=== PATIENT | female | born 1975 | race American Indian/Alaskan Native ===

== ENCOUNTER 2018-04-02 09:38 | Emergency (ER) | payer MEDICAID ==
[2018-04-02 09:39] VITALS: BMI 20.5
[2018-04-02 09:40] VITALS: TEMP 98.5
--- NOTE | 2018-04-02 11:59 | RAD ---
PROCEDURE: Left Hip X-ray Radiographs. HISTORY: h/o THR one week ago, pain COMPARISON: None. FINDINGS: BONES: No fracture seen. Subchondral lucency with sclerosis borders the superior and to lesser extent inferior acetabular prosthetic component. The contour changes of the inferior left pubic rim are of unknown chronicity. Direct comparison with immediate postop study is advised. JOINTS: The left acetabular and left femoral stem components appear well seated. A single left acetabular iliac screw is present. SOFT TISSUES: Normal. OTHER FINDINGS: None. IMPRESSION: Left hip replacement the 3 views presented are frontal views without significant frog leg obliquing. to assess for any anterior posterior malalignment. Direct comparison with prior immediate postop study is advised. Multiple ossifications bordering the inferior left acetabular prosthetic component overlying the inferior left pubic ring is of unknown chronicity. Acute subacute fractures are not excluded. Comparison with the most recent free and postop images is essential. . This was directly discussed with the ER physician Dr. Beal on 04/02/2018 at 11:57 a.m.
--- NOTE | 2018-04-02 14:16 | ED PDOC ---
Lower Extremity Pain/Injury Time Seen by Provider: 04/02/18 09:52 Chief Complaint (Nursing): Hip Pain History Per: Patient (this is a 42 yo lady who is brought to the ER by EMS because she felt her prosthetic hip come out while she was at her boyfriend's house in [place]. She is from [facility] herself. 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 She had undergone her initial THR when she was 23 years of age. She had just undergone a revision of the joint one week ago by Dr. Dubois of [facility] in the [place]. She was discharged. She is taking Lovenox for DVT prophylaxis. She is also taken narcotics, meloxicam and muscle relaxants for pain already. She denies fever, fall or other injuries since discharge. She notes that when she was transferred onto the EMS stretcher she felt the joint pop back in. ) History/Exam Limitations: no limitations Past Medical History Reviewed: Historical Data, Nursing Documentation, Vital Signs Vital Signs: Last Vital Signs Temp 98.5 F 04/02/18 09:39 Pulse 102 H 04/02/18 09:39 Resp 16 04/02/18 09:39 BP 128/78 04/02/18 09:39 Pulse Ox 100 04/02/18 09:39 - Medical History PMH: Arthritis - Surgical History Other surgeries: total hip replacement left - Family History Family History: States: No Known Family Hx - Living Arrangements Living Arrangements: With Family - Social History Current smoker - smoking cessation education provided: No Alcohol: None - Allergies Allergies/Adverse Reactions: Allergies Allergy/AdvReac Type Severity Reaction Status Date / Time Penicillins Allergy RASH Verified 04/02/18 09:52 Review of Systems ROS Statement: Except As Marked, All Systems Reviewed And Found Negative Musculoskeletal: Positive for: Other (left hip pain) Physical Exam - Reviewed Nursing Documentation Reviewed: Yes Vital Signs Reviewed: Yes - Physical Exam Appears: Positive for: Well, Non-toxic, No Acute Distress, Uncomfortable Head Exam: Positive for: ATRAUMATIC, NORMAL INSPECTION, NORMOCEPHALIC Skin: Positive for: Normal Color, Warm, DRY Eye Exam: Positive for: Normal appearance ENT: Positive for: Normal ENT Inspection Neck: Positive for: Normal Cardiovascular/Chest: Positive for: Regular Rate, Rhythm Respiratory: Positive for: CNT, Normal Breath Sounds Gastrointestinal/Abdominal: Positive for: Normal Exam, Soft Back: Positive for: Normal Inspection Extremity: Positive for: Normal ROM Neurologic/Psych: Positive for: Alert, Oriented - ECG O2 Sat by Pulse Oximetry: 100 Medical Decision Making Medical Decision Making: Patient given Toradol for pain. The relief of symptoms was transient. She has been self medicating with her home meds during her ER visit. Her x-rays were unrevealing. Despite radiologist concern, there was no recommendation for further imaging with CT or MRI. The only recommendation is to compare images to previous ones. Patient offered admission for further evaluation and management of pain. Patient request transfer to [facility]. Case d/w Dr. Dubois's surgical technology instructor for transfer. He is very receptive to this. Patient then changed her mind once her pain is controlled with her own meds. She requested discharge from this ER. She has asked her brother to bring her walker from home. States that he will drive her to [facility]. Disposition - Clinical Impression Clinical Impression: Hip pain, left - Patient ED Disposition Is Patient to be Admitted: No Doctor Will See Patient In The: Office Counseled Patient/Family Regarding: Diagnosis - Disposition Disposition: Routine/Home Disposition Time: 13:45 Condition: IMPROVED Additional Instructions: Please followup with Dr. Raymond Dubois ([phone]) in the [place], [place]. As per discussion with Dr. Silvino Zamorano's surgical technology instructor, you may also go the ER at [facility] for continued care by Dr. Andrade and his team of physicians. Instructions: Hip Pain Forms: [employer] (Belgian) - POA Present On Arrival: None
[2018-04-02 14:29] VITALS: BP 120/72; PULSE 90; RESP 18; O2SAT 98
== END 2018-04-02 15:40 | disposition home or self-care (01) ==
LOC: H.ER 09:38
DX: M25.552 Pain in left hip (principal); Z88.0 Allergy status to penicillin; Z96.642 Presence of left artificial hip joint
CPT/HCPCS: 73501; 96372; 99284; J1885